=== PATIENT | male | born 1950 | race Asian ===

== ENCOUNTER 2016-11-07 09:48 | Inpatient (IN) | payer MEDICARE ==
[2016-11-07] VITALS (7 sets, daily range): BP systolic 90–126; BP diastolic 51–78; PULSE 80–112; RESP 16–20; TEMP 98.8–101.4; O2SAT 95–97
[~2016-11-07] VITALS: Ht 165.1 cm; Wt 71.7 kg
[~2016-11-07 09:48] MED LIST: ALBU2.5V7 INH; ARTT OP; ASA81 PO; ASCO500T20 PO; BACL20TA PO; DULO30CA51 PO; DULR10 RC; GABA-531 PO; HYDR-1189 PO; MULT9LIQ PO; POTA20TA83 PO; SENN-153 PO
--- NOTE | 2016-11-07 09:48 | NUR ---
Pt report received from MATT Bower. Pt sent from [facility] for coffee ground emesis, abdominal pain, and BLE pain since last night. Pt AAOx4, even and non-labored respirations. Pt has trach stoma that appears to be healing. F/C in place draining ariadna colored urine.
--- NOTE | 2016-11-07 09:48 | NUR ---
Patient to ER bed 6 to gown for evaluation. Side rails up. Report given to eve mendoza.
--- NOTE | 2016-11-07 09:55 | NUR ---
Dr. Maki at bedside to evaluate pt.
[2016-11-07] MEDS ORDERED: NACL 0.9% 1,000 ML IV ONE ×4 (10:15→15:15)
[2016-11-07 10:33] LABS: CALCIUM 9.4 mg/dL (8.4-11.0); CREATININE 0.83 mg/dL (0.55-1.30); POTASSIUM 4.8 mmol/L (3.5-5.1)
[2016-11-07 10:34] LABS: HEMATOCRIT 37.3 % (36-54); HEMOGLOBIN 11.8 g/dL (14.0-18.0); MEAN CORPUSCULAR HEMOGLOBIN 26 pg (27-31); MEAN CORPUSCULAR HGB CONC 32 % (32-36); MEAN CORPUSCULAR VOLUME 81 fL (79.0-98.0); PLATELET COUNT (AUTO) 290 K/uL (130-430); RED BLOOD CELL COUNT(AUTO) 4.63 MIL/uL (4.2-6.2); RED CELL DISTRIBUTION WIDTH 14.8 % (9.0-15.0)
[2016-11-07 10:36] LABS: WHITE BLOOD COUNT (AUTO) 16.4 K/uL (4.8-10.8)
[2016-11-07 10:40] LABS: TOTAL BILIRUBIN 2.1 mg/dL (0.0-1.0)
[2016-11-07 10:41] LABS: ALBUMIN 3.7 g/dL (3.4-4.8); TOTAL PROTEIN, SERUM 8.7 g/dL (6.4-8.3)
[2016-11-07] MEDS ORDERED: MORPHINE SULFATE 10 MG/ML VIAL IVP ONE ×2 (10:45→13:30)
[2016-11-07 10:57] LABS: BILIRUBIN,URINE 1+ (NEGATIVE); BLOOD, URINE 3+ (NEGATIVE); CLARITY/URINE HAZY (CLEAR); COLOR,URINE YELLOW (YELLOW); GLUCOSE,URINE NEGATIVE (NEGATIVE); KETONES,URINE NEGATIVE (NEGATIVE); LEUKOCYTE ESTERASE ,URINE 3+ (NEGATIVE); NITRITE, URINE NEGATIVE (NEGATIVE); PH,URINE 8.5 (5.0-8.0); PROTEIN URINE 1+ (NEGATIVE)
[2016-11-07 10:58] LABS: ATYPICAL LYMPHOCYTES % 0 % (0-0); BAND % (MANUAL) 2 % (0-6); BASOPHILS % (MANUAL) 0 % (0-2); EOSINOPHILS % (MANUAL) 0 % (0-7); LYMPHOCYTES % (MANUAL) 8 % (20-46); MONOCYTES % (MANUAL) 3 % (0-11)
[2016-11-07 11:08] LABS: BACTERIA,URINE FEW /HPF (None Seen)
[2016-11-07 11:09] LABS: MUCUS,URINE None Seen /LPF (None Seen); TRIPLE PHOSPHATE CRYSTAL,UR 0-10 /HPF (None Seen)
[2016-11-07] MEDS ORDERED: cefTRIAXone 1 GM in D5W 50 ML IV ONE (12:00)
[2016-11-07] MEDS ORDERED: metroNIDAZOLE 500 mg/NS 100 ML IV ONE (12:00)
[2016-11-07] MEDS ORDERED: cefTRIAXone 1 GM IVPB PREMIX 50 ML IV ONE (12:07)
--- NOTE | 2016-11-07 12:40 | NUR ---
Pt to CT via stretcher.
[2016-11-07] MEDS ORDERED: ACETAMINOPHEN 500 MG TABLET PO ONE (12:45)
--- NOTE | 2016-11-07 13:03 | NUR ---
Pt returns from CT.
--- NOTE | 2016-11-07 13:15 | NUR ---
Temp 102.7. Dr. Maki notified.
--- NOTE | 2016-11-07 13:18 | NUR ---
Pt given sips of water.
--- NOTE | 2016-11-07 13:25 | NUR ---
Ice packs applied to bilat axilla. Linens removed from pt.
--- NOTE | 2016-11-07 13:27 | NUR ---
Pt c/o 06/18 body pain, ER MD notified
[2016-11-07 13:28] LABS: PROTHROMBIN TIME 10.4 SECS (9.5-12.5)
--- NOTE | 2016-11-07 13:30 | NUR ---
Dr. Vasquez at bedside to assess pt.
[2016-11-07] MEDS ORDERED: PANTOPRAZOLE SODIUM 80 MG in NS 100 ML IV ONE (13:45)
[2016-11-07] MEDS ORDERED: PANTOPRAZOLE SODIUM 40 MG in NS 50 ML IV ONE (13:45)
[2016-11-07] MEDS ORDERED: PIPERACILLIN/TAZO 3.375 GM in NS 50 ML IV ONE (13:45)
--- NOTE | 2016-11-07 13:50 | NUR ---
EJ line to Left neck placed per Dr. Box. Good blood return, flushes easy with NS. Secured with tegaderm and tape. Pt tolerated well.
[2016-11-07] MEDS ORDERED: PIPERACILLIN/TAZOBACTAM 3.375 GM/VIAL (ZOSYN) IV ONE (14:06)
--- NOTE | 2016-11-07 15:00 | NUR ---
Temp 102.5 Dr. Maki notified. Pt to be medicated with Ibuprofen 600 mg PO per verbal order.
[2016-11-07] MEDS ORDERED: PANTOPRAZOLE SODIUM 40 MG/VIAL (PROTONIX) ONE (15:22)
--- NOTE | 2016-11-07 15:45 | NUR ---
Patient will be admitted to care of Dr. Desir. Admitted to Med/Surg unit. Will go to room 135A. Belongings list completed. Summary report printed. Bedside report given to receiving RN.
--- NOTE | 2016-11-07 15:45 | NUR ---
ADMISSION: The patient, YADIEL DUNLAP, 66 y/o, M admitted by AILEEN NIXON DO, was given written information regarding hospital policies, unit procedures and contact persons.
[2016-11-07] MEDS ORDERED: TRAZ-123 GT (15:56)
[2016-11-07] MEDS ORDERED: LEVE500T53 GT (15:56)
[2016-11-07] MEDS ORDERED: FAMO40OR3 GT (15:56)
[2016-11-07] MEDS ORDERED: TAMS0.4C96 GT (15:56)
--- NOTE | 2016-11-07 16:00 | NUR ---
patient came from Er aaox4. temp of 101.6. ice packs on the patient on. hr 82. bp is 130/72. has lt jugular iv access 20 x 2 lumen with normal saline at 100cc/hr infusing on well. and protonix drip at 10cc/hr infusing on well. lungs bilaterally diminished at the bases. on room air 98%. abdomen soft and non distended. has g tube in placed clamped. call lights within reach. safety measures maintained. informed to call for assistance. admission notes noted. verbalized wants a flu shot/vaccine before discharge.
[2016-11-07] MEDS ORDERED: DOCUSATE SODIUM 100 MG CAPSULE PO PRN (16:15)
[2016-11-07] MEDS ORDERED: ONDANSETRON HCL 4 MG/2 ML VIAL IVP PRN (16:15)
[2016-11-07] MEDS ORDERED: ALBUTEROL SULFATE 0.083% 2.5 MG/3 ML VIAL.NEB INH PRN (16:15)
[2016-11-07] MEDS ORDERED: MAGNESIUM SULFATE 50 ML IV PRN (16:15)
[2016-11-07] MEDS ORDERED: levETIRAcetam 500 MG TABLET GT PRN (16:15)
[2016-11-07] MEDS ORDERED: LORazepam 2 MG/ML VIAL IVP PRN (16:15)
[2016-11-07] MEDS ORDERED: NA PHOS,M-B/NA PHOS,DI-BA 118 ML (FLEET ENEMA) RC ONE (16:15)
[2016-11-07] MEDS ORDERED: PANTOPRAZOLE SODIUM 40 MG/VIAL (PROTONIX) IVP ONE (16:45)
[2016-11-07] MEDS: D5NS 1,000 ML IV SCH (16:59)
--- NOTE | 2016-11-07 17:06 | NUR ---
CONSULTATION: REASON FOR CONSULT: UGI BLEED CONSULTING PHYSICIAN: HOLLIS KILLIAN MD ORDERED BY: AILEEN NIXON DO SPOKE WITH [place] BUT DR SUMMERS IS VENDING SUPERVISOR .
[2016-11-07] MEDS: MORPHINE 2 MG/ML INJ. SYRINGE IVP PRN (17:08)
--- NOTE | 2016-11-07 17:09 | NUR ---
CONSULTATION: REASON FOR CONSULT: SEPSIS CONSULTING PHYSICIAN: BLANCA ARIZA MD ORDERED BY: AILEEN NIXON DO SPOKE WITH [place] BUT DR MARK IS SKEIN TIER
--- NOTE | 2016-11-07 17:15 | NUR ---
morphine 2 mg iv given at this time. made comfortable.
[2016-11-07] MEDS: VANCOMYCIN HCL 1,000 MG in NS 250 ML IV SCH (17:16)
--- NOTE | 2016-11-07 17:18 | NUR ---
due medication given at this time. started D5ns at 100cc/hr infusing on well.
--- NOTE | 2016-11-07 17:23 | NUR ---
replaced an ice packs on different places.groin areas. back of nape/neck. bilateral armpits.
--- NOTE | 2016-11-07 17:30 | NUR ---
latest temperature is 99.2
[2016-11-07] MEDS ORDERED: FLU VACC QS 2016-17(36MOS+)/PF 0.5 ML/SYR SYRINGE I.M. PRN ×2 (17:45→18:00)
--- NOTE | 2016-11-07 18:05 | NUR ---
latest temperature is 98.8. afebrile.
--- NOTE | 2016-11-07 18:45 | NUR ---
Dr Levy came and made orders. informed regarding itchiness all over.
[2016-11-07] MEDS ORDERED: DIPHENHYDRAMINE INJ 50 MG/ML VIAL IVP PRN (19:00)
--- NOTE | 2016-11-07 19:22 | NUR ---
sbar report given to incoming nurse Yesy GUTIERREZ
--- NOTE | 2016-11-07 19:35 | NUR ---
Initial Note Patient in bed at this time resting, respirations even and unlabored. No acute distress noted at this time. Patient is stating he is in pain, but I explained to patient that his blood pressure is to low to give morphine at this time, and verbalized understanding. IV site patent with no signs or symptoms of infiltration noted at this time. Call light in hand. Fall and safety precautions in place. Will continue to monitor.
[2016-11-07] MEDS: CEFEPIME 1 GM in D5W 50 ML IV SCH (21:32)
[2016-11-07] MEDS: GABAPENTIN 300 MG CAPSULE PO SCH (21:33)
[2016-11-07] MEDS: ASCORBIC ACID 500 MG TABLET PO SCH (21:33)
[2016-11-07] MEDS: BACLOFEN 10 MG TABLET PO SCH (21:33)
[2016-11-07] MEDS: SENNOSIDES 8.6 MG TABLET PO SCH (21:33)
--- NOTE | 2016-11-07 23:57 | NUR ---
MD Call back. Spoke with Dr. Traore regarding patients blood pressure. Informed him that he is asymptomatic. Dr. Traore is aware that patient blood pressure tends to run in the lower range. Received new order for a bolus of NS. Also to hold any blood pressure medications. Will carry out order.
[2016-11-08] VITALS (7 sets, daily range): BP systolic 85–123; BP diastolic 52–88; PULSE 82–108; RESP 17–20; TEMP 97.8–99.7; O2SAT 96–99
[2016-11-08] MEDS ORDERED: NACL 0.9% 1,000 ML IV ONE
[2016-11-08] MEDS: ACETAMINOPHEN 325 MG TABLET PO PRN (00:23)
--- NOTE | 2016-11-08 01:34 | NUR ---
Bolus Bolus finished per MD order. Patient noted to have increased blood pressure 98/52. Patient continues to be asymptomatic. Call light in hand. Fall and safety precautions in place. Will continue to monitor.
--- NOTE | 2016-11-08 04:17 | NUR ---
RN ROUNDS Patient in bed at this time resting, respirations even and unlabored. No acute distress noted at this time. Patient in no apparent pain or discomfort at this time. Call light in hand. Fall and safety precautions in place. Will continue to monitor.
[2016-11-08] MEDS: D5NS 1,000 ML IV SCH ×3 (04:20→20:38)
[2016-11-08] MEDS: VANCOMYCIN HCL 1,000 MG in NS 250 ML IV SCH ×2 (05:15→17:54)
--- NOTE | 2016-11-08 06:29 | NUR ---
Closing Note Patient in bed at this time resting, patient complained of being itchy. Administered Benadryl as ordered per MD, see eMAR. All due meds given, all needs met. Call light in hand. Fall and safety precautions in place. Will endorse to day shift nurse.
--- NOTE | 2016-11-08 07:20 | NUR ---
Initial notes: pt on bed awake and alert. Remains NPO. Discussed plan of care. Call light within reach. Report received at bedside.
--- NOTE | 2016-11-08 07:22 | NUR ---
Nutrition Update Pt was admitted with Sepsis. Andry Scale: 16 Diet: NPO BMI: 28.3 kg/m2 RD to follow up per nutrition care standards.
[2016-11-08 08:00] LABS: EOSINOPHILS # (AUTO) 0.1 K/uL (0.0-0.4); EOSINOPHILS % (AUTO) 0.4 % (0.0-4.0); HEMATOCRIT 34.2 % (36-54); LYMPHOCYTES # (AUTO) 0.9 K/uL (1.0-5.5); LYMPHOCYTES % (AUTO) 6.6 % (20.5-51.5); MEAN CORPUSCULAR HEMOGLOBIN 26 pg (27-31); MEAN CORPUSCULAR HGB CONC 32 % (32-36); MEAN CORPUSCULAR VOLUME 82 fL (79.0-98.0); MONOCYTES # (AUTO) 0.7 K/uL (0.0-1.0); MONOCYTES % (AUTO) 5.1 % (1.7-9.3); NEUTROPHILS # (AUTO) 12.2 K/uL (1.8-7.7); NEUTROPHILS % (AUTO) 87.9 % (40.0-70.0); PLATELET COUNT (AUTO) 243 K/uL (130-430); RED BLOOD CELL COUNT(AUTO) 4.18 MIL/uL (4.2-6.2); RED CELL DISTRIBUTION WIDTH 15.1 % (9.0-15.0); WHITE BLOOD COUNT (AUTO) 13.9 K/uL (4.8-10.8)
[2016-11-08 08:28] LABS: CALCIUM 8.7 mg/dL (8.4-11.0); CREATININE 1.29 mg/dL (0.55-1.30); POTASSIUM 4.2 mmol/L (3.5-5.1)
[2016-11-08] MEDS: CEFEPIME 1 GM in D5W 50 ML IV SCH ×2 (08:44→20:37)
[2016-11-08] MEDS: PANTOPRAZOLE SODIUM 40 MG/VIAL (PROTONIX) IVP SCH (08:45)
[2016-11-08] MEDS ORDERED: MIDAZOLAM HCL 5 MG/5 ML VIAL ONE ×2 (09:10→09:11)
[2016-11-08] MEDS ORDERED: fentaNYL CITRATE/PF 100 MCG/2 ML AMP ONE (09:11)
[2016-11-08] MEDS: DULoxetine HCL 30 MG CAPSULE.DR (CYMBALTA) PO SCH (12:41)
[2016-11-08] MEDS: TAMSULOSIN HCL 0.4 MG CAP GT SCH (12:41)
[2016-11-08] MEDS: GABAPENTIN 300 MG CAPSULE PO SCH ×3 (12:42→20:37)
[2016-11-08] MEDS: ASCORBIC ACID 500 MG TABLET PO SCH ×2 (12:43→20:37)
[2016-11-08] MEDS: traZODone HCL 50 MG TABLET (DESYREL) GT SCH (12:43)
[2016-11-08] MEDS: BACLOFEN 10 MG TABLET PO SCH ×3 (12:43→20:37)
[2016-11-08] MEDS: HYDROcodone/ACETAMIN 5-325 MG TAB (NORCO/ VICODIN) PO PRN ×2 (12:43→18:10)
--- NOTE | 2016-11-08 18:07 | NUR ---
Critical lab: + for CDIF. page Dr. Manriquez
--- NOTE | 2016-11-08 19:30 | NUR ---
closing notes: pt on bed sleeping. no distress noted. Contact precaution for CDIFF in placed. call light within reach. report given at bedside.
--- NOTE | 2016-11-08 19:35 | NUR ---
Initial Note Patient in bed at this time resting, respirations even and unlabored. No acute distress noted at this time. IV site patent with no signs or symptoms of infiltration noted at this time. Butler draining to gravity, ariadna with sediments. No residual noted on gtube, tolerating feeding well. Call light in hand. Fall and safety precautions in place. Will continue to monitor.
[2016-11-08] MEDS: SENNOSIDES 8.6 MG TABLET PO SCH (20:37)
[2016-11-08] MEDS: metroNIDAZOLE 500 MG TABLET PO SCH (20:37)
--- NOTE | 2016-11-08 22:10 | NUR ---
RN ROUNDS Patient in bed at this time resting, respirations even and unlabored. No acute distress noted at this time. Call light in hand. Fall and safety precautions in place. Will continue to monitor.
--- NOTE | 2016-11-09 00:06 | NUR ---
RN ROUNDS Patient in bed at this time resting, respirations even and unlabored. No acute distress noted at this time. Patient resting with eyes closed. Patient in no apparent pain or discomfort at this time. Patient is NPO at this time for HIDA scan. Call light in hand. Fall and safety precautions in place. Will continue to monitor.
[2016-11-09] MEDS: HYDROcodone/ACETAMIN 5-325 MG TAB (NORCO/ VICODIN) PO PRN ×2 (00:54→21:25)
--- NOTE | 2016-11-09 02:56 | NUR ---
RN ROUNDS Patient in bed at this time resting, respirations even and unlabored. No acute distress noted at this time. Patient in no apparent pain or discomfort at this time, no facial grimacing noted. Call light in place. Fall and safety precautions in place. Will continue to monitor.
[2016-11-09 04:22] VITALS: BP 129/72; PULSE 91; RESP 18; TEMP 98.4; O2SAT 97
[2016-11-09] MEDS: VANCOMYCIN HCL 1,000 MG in NS 250 ML IV SCH (05:16)
--- NOTE | 2016-11-09 06:43 | NUR ---
Closing Note Patient in bed at this time resting, respirations even and unlabored. No acute distress noted at this time. Patient in no apparent pain or discomfort at this time. Call light in hand. Fall and safety precautions in place. Will continue to monitor.
[2016-11-09 07:27] LABS: EOSINOPHILS # (AUTO) 0.3 K/uL (0.0-0.4); EOSINOPHILS % (AUTO) 5.1 % (0.0-4.0); HEMATOCRIT 28.3 % (36-54); HEMOGLOBIN 8.9 g/dL (14.0-18.0); LYMPHOCYTES # (AUTO) 0.7 K/uL (1.0-5.5); LYMPHOCYTES % (AUTO) 11.7 % (20.5-51.5); MEAN CORPUSCULAR HEMOGLOBIN 26 pg (27-31); MEAN CORPUSCULAR HGB CONC 32 % (32-36); MEAN CORPUSCULAR VOLUME 81 fL (79.0-98.0); MONOCYTES # (AUTO) 0.3 K/uL (0.0-1.0); MONOCYTES % (AUTO) 4.7 % (1.7-9.3); NEUTROPHILS # (AUTO) 5.1 K/uL (1.8-7.7); NEUTROPHILS % (AUTO) 78.5 % (40.0-70.0); PLATELET COUNT (AUTO) 204 K/uL (130-430); RED BLOOD CELL COUNT(AUTO) 3.49 MIL/uL (4.2-6.2); RED CELL DISTRIBUTION WIDTH 15.3 % (9.0-15.0)
--- NOTE | 2016-11-09 07:30 | NUR ---
initial notes: pt on the bed resting. stable. plan of care discussed. call light within reach. report received at bedside.
[2016-11-09 07:36] LABS: WHITE BLOOD COUNT (AUTO) 6.4 K/uL (4.8-10.8)
[2016-11-09 07:51] LABS: ALBUMIN 2.5 g/dL (3.4-4.8); BILIRUBIN,DIRECT 0.7 mg/dL (0.0-0.3); CALCIUM 8.2 mg/dL (8.4-11.0); CREATININE 0.7 mg/dL (0.55-1.30); POTASSIUM 3.3 mmol/L (3.5-5.1); TOTAL BILIRUBIN 0.9 mg/dL (0.0-1.0); TOTAL PROTEIN, SERUM 6.6 g/dL (6.4-8.3)
[2016-11-09 08:00] VITALS: BP 141/80; PULSE 85; RESP 18; TEMP 98.1
--- NOTE | 2016-11-09 08:30 | NUR ---
rounds: pt changed under pad due to BM. repositioned for comfort.
[2016-11-09] MEDS: PANTOPRAZOLE SODIUM 40 MG/VIAL (PROTONIX) IVP SCH (08:40)
[2016-11-09] MEDS: MORPHINE 2 MG/ML INJ. SYRINGE IVP PRN ×2 (08:41→15:40)
[2016-11-09] MEDS: CEFEPIME 1 GM in D5W 50 ML IV SCH (09:01)
--- NOTE | 2016-11-09 10:00 | NUR ---
Medication: medication P.O. withheld due to pt NPO for HIDA scan.
[2016-11-09 11:38] VITALS: BP 134/73; PULSE 84; RESP 16; TEMP 98.4; O2SAT 95
--- NOTE | 2016-11-09 12:11 | NUR ---
rounds: pt on bed resting. no distress noted. changed under pad and repositioned.
--- NOTE | 2016-11-09 13:30 | NUR ---
HIDA Scan: pt wheeled to [facility] room for HIDA scan by staff.
[2016-11-09 13:51] VITALS: Ht 165.1 cm; Wt 71.7 kg
--- NOTE | 2016-11-09 15:20 | NUR ---
rounds: pt back in his room. reconnect i.v., gtube, and medication given late due to the npo procedure.
[2016-11-09] MEDS: ASCORBIC ACID 500 MG TABLET PO SCH ×2 (15:40→21:29)
[2016-11-09] MEDS: traZODone HCL 50 MG TABLET (DESYREL) GT SCH (15:41)
[2016-11-09] MEDS: TAMSULOSIN HCL 0.4 MG CAP GT SCH (15:41)
[2016-11-09] MEDS: BACLOFEN 10 MG TABLET PO SCH ×3 (15:41→21:29)
[2016-11-09 15:50] VITALS: BP 139/82; PULSE 87; RESP 17; TEMP 96.9; O2SAT 96
[2016-11-09] MEDS: DULoxetine HCL 30 MG CAPSULE.DR (CYMBALTA) PO SCH (15:51)
[2016-11-09] MEDS: metroNIDAZOLE 500 MG TABLET PO SCH ×2 (15:51→21:28)
[2016-11-09] MEDS: GABAPENTIN 300 MG CAPSULE PO SCH ×2 (15:59→21:23)
--- NOTE | 2016-11-09 16:00 | NUR ---
rounds: pt sleeping. no distress noted.
--- NOTE | 2016-11-09 18:00 | NUR ---
pain meds: pain medication given for lower legs pain.
[2016-11-09] MEDS: ACETAMINOPHEN 325 MG TABLET PO PRN (18:19)
--- NOTE | 2016-11-09 19:35 | NUR ---
initial nursing notes: Patient is awake. Patient is bedbound. Patient has a G-tube feeding. Patient has IV fluid infusing on the left IJ. Patient has a Butler catheter with ariadna colored urine output. Siderails are padded since patient is on seizure precaution.
[2016-11-09] MEDS: D5NS 1,000 ML IV SCH (19:42)
[2016-11-09 19:51] VITALS: BP 145/79; PULSE 84; RESP 17; TEMP 99.6; O2SAT 98
--- NOTE | 2016-11-09 20:12 | NUR ---
rounds: pt on bed resting. no distress noted.
--- NOTE | 2016-11-09 20:13 | NUR ---
closing notes: pt on bed. stable. needs attended. call light within reach. report given to incoming nurse.
[2016-11-09] MEDS: SENNOSIDES 8.6 MG TABLET PO SCH (21:27)
[2016-11-09] MEDS: LACTOBACILLUS RHAMNOSUS GG 1 CAP CAPSULE PO SCH (21:29)
--- NOTE | 2016-11-09 21:35 | NUR ---
nursing rounds: Patient received pain medication for arm pain 12/17. Will reassess patient in about an hour.
--- NOTE | 2016-11-09 22:25 | NUR ---
nursing rounds: Patient is asleep in bed. Patient has no shortness of breath.
[2016-11-10] VITALS (7 sets, daily range): BP systolic 117–147; BP diastolic 70–89; PULSE 76–90; RESP 18–20; TEMP 97.8–99.4; O2SAT 97–100
--- NOTE | 2016-11-10 00:25 | NUR ---
nursing rounds: Patient is sleeping in bed. Kept siderails up X 3 for patient's safety.
--- NOTE | 2016-11-10 02:25 | NUR ---
nursing rounds: Patient had a loose bowel movement in bed. Patient was cleaned and bed covers were changed.
--- NOTE | 2016-11-10 03:55 | NUR ---
nursing rounds: Patient had another loose bowel movement in bed. Patient was cleaned and bed covers were changed.
[2016-11-10] MEDS: D5NS 1,000 ML IV SCH ×3 (04:47→23:55)
--- NOTE | 2016-11-10 05:55 | NUR ---
nursing rounds: Patient calmly resting in bed. Patient has no respiratory distress.
[2016-11-10 06:06] LABS: CALCIUM 8.2 mg/dL (8.4-11.0); CREATININE 0.77 mg/dL (0.55-1.30)
[2016-11-10 06:08] LABS: BASOPHILS % (AUTO) 0.1 % (0.0-2.0); EOSINOPHILS # (AUTO) 0.3 K/uL (0.0-0.4); EOSINOPHILS % (AUTO) 3.6 % (0.0-4.0); HEMATOCRIT 30.9 % (36-54); HEMOGLOBIN 9.6 g/dL (14.0-18.0); LYMPHOCYTES # (AUTO) 0.8 K/uL (1.0-5.5); LYMPHOCYTES % (AUTO) 10.8 % (20.5-51.5); MEAN CORPUSCULAR HEMOGLOBIN 25 pg (27-31); MEAN CORPUSCULAR HGB CONC 31 % (32-36); MEAN CORPUSCULAR VOLUME 81 fL (79.0-98.0); MONOCYTES # (AUTO) 0.4 K/uL (0.0-1.0); MONOCYTES % (AUTO) 5.8 % (1.7-9.3); NEUTROPHILS # (AUTO) 5.9 K/uL (1.8-7.7); NEUTROPHILS % (AUTO) 79.7 % (40.0-70.0); PLATELET COUNT (AUTO) 217 K/uL (130-430); RED CELL DISTRIBUTION WIDTH 14.9 % (9.0-15.0); WHITE BLOOD COUNT (AUTO) 7.4 K/uL (4.8-10.8)
[2016-11-10 07:21] LABS: POTASSIUM 2.9 mmol/L (3.5-5.1)
--- NOTE | 2016-11-10 07:32 | NUR ---
closing nursing notes: Patient calmly resting in bed. Patient is in no acute respiratory distress. Vital signs stable. No episodes of fall and no injuries throughout the cage shift manager. Provided nursing report to incoming morning shift nurse, MATT Ro, at patient's bedside.
--- NOTE | 2016-11-10 07:44 | NUR ---
CALLED ATTENDING MD DR NIXON, , DR SOSA STORAGE GARAGE ATTENDANT, RE: LOW K LEVEL. SPOKE TO RENZO. CALLED DR NIXON AGAIN, RE: DR SOSA DOES NOT HAVE PRIVILEGES. SPOKE TO RENZO HUBER
--- NOTE | 2016-11-10 07:50 | NUR ---
Critical lab Dr. Traore in [place], informed of potassium level of 2.9 with new order given.
--- NOTE | 2016-11-10 08:00 | NUR ---
OPENING NOTE: RECEIVED REPORT FROM NIGHT NURSE. PATIENT IS RESTING COMFORTABLY IN BED. NO S/S OF DISTRESS OR SOB. PATIENT IS A TOTAL CARE BUT HE IS ALERT AND ORIENTED. SANTIAGO DRAINING TO GRAVITY. IV IS PATENT AND INFUSING. CONTACT PRECAUTIONS IN PLACE. VITAL SIGN WNL, ASSESSMENT COMPLETE. CALL LIGHT IN REACH, BED IN LOWEST POSITION, AND WILL CONTINUE TO MONITOR.
[2016-11-10] MEDS ORDERED: POTASSIUM CHLORIDE 40 MEQ, LIDOCAINE JECT 2% PF 100 MG 50 MG in NS 250 ML IV ONE (09:00)
[2016-11-10] MEDS: MORPHINE 2 MG/ML INJ. SYRINGE IVP PRN ×4 (10:00→23:55)
--- NOTE | 2016-11-10 10:00 | NUR ---
NOTE: PATIENT IS RESTING COMFORTABLY IN BED. NO S/S OF DISTRESS OR SOB. PATIENT IS AWAKE AND ALERT. CALL LIGHT IN REACH, BED IN LOWEST POSITION, AND WILL CONTINUE TO MONITOR.
[2016-11-10] MEDS: traZODone HCL 50 MG TABLET (DESYREL) GT SCH (10:12)
[2016-11-10] MEDS: BACLOFEN 10 MG TABLET PO SCH ×3 (10:12→20:28)
[2016-11-10] MEDS: DULoxetine HCL 30 MG CAPSULE.DR (CYMBALTA) PO SCH (10:12)
[2016-11-10] MEDS: PANTOPRAZOLE SODIUM 40 MG/VIAL (PROTONIX) IVP SCH (10:12)
[2016-11-10] MEDS: LACTOBACILLUS RHAMNOSUS GG 1 CAP CAPSULE PO SCH (10:13)
[2016-11-10] MEDS: ASCORBIC ACID 500 MG TABLET PO SCH ×2 (10:13→20:28)
[2016-11-10] MEDS: TAMSULOSIN HCL 0.4 MG CAP GT SCH (10:13)
[2016-11-10] MEDS: GABAPENTIN 300 MG CAPSULE PO SCH ×3 (10:14→20:28)
[2016-11-10] MEDS: metroNIDAZOLE 500 MG TABLET PO SCH ×3 (10:14→20:28)
--- NOTE | 2016-11-10 12:00 | NUR ---
NOTE: PATIENT IS RESTING COMFORTABLY IN BED. NO S/S OF DISTRESS OR SOB. PATIENT IS ALERT AND AWAKE. CALL LIGHT IN REACH, BED IN LOWEST POSITION, AND WILL CONTINUE TO MONITOR.
--- NOTE | 2016-11-10 15:50 | NUR ---
Nutrition Note MD signed nutrition note. RD placed new TF order per MD (Fibersource HN at 60 ml/hr, Prosource BID, Free Water Flush: 100 mlq6hr via G-tube.
--- NOTE | 2016-11-10 17:00 | NUR ---
Nutrition Note RD placed new diet order (mechanical soft) per MD to supplement enteral nutrition. Recommend assisting pt w/ meals to encourage PO intake.
--- NOTE | 2016-11-10 18:16 | NUR ---
CLOSING NOTE: PATIENT IS RESTING COMFORTABLY IN BED. NO S/S OF DISTRESS OR SOB. PATIENT IS ALERT AND ORIENTED. IV IS PATENT AND INFUSING. SANTIAGO DRAINING TO GRAVITY. TUBE-FEEDING IN PLACE. CALL LIGHT IN REACH, BED IN LOWEST POSITION, AND WILL CONTINUE TO MONITOR. Addendum: 11/10/16 at 1817 by Jia Hernández RN WILL ENDORSE CARE TO NIGHT NURSE.
--- NOTE | 2016-11-10 19:49 | NUR ---
OPENING NOTE Pt. and bedside report received from day shift nurse. Pt. is resting quietly in bed with no s/s of acute distress. Plan of care and safety/seizure/isolation measures discussed with pt. Educated pt. on how to use call light for needs. Will continue to monitor.
[2016-11-10] MEDS: HYDROcodone/ACETAMIN 5-325 MG TAB (NORCO/ VICODIN) PO PRN (20:28)
[2016-11-10] MEDS: LACTOBACILLUS RHAMNOSUS GG 1 CAP CAPSULE GT SCH (20:28)
[2016-11-10] MEDS: SENNOSIDES 8.6 MG TABLET PO SCH (20:29)
[2016-11-10] MEDS: ZOLPIDEM TARTRATE 5 MG TABLET PO PRN (20:41)
--- NOTE | 2016-11-10 22:38 | NUR ---
DUE MEDS Late entry due to pt. care. Due meds administered as ordered. Pt. tolerating tubefeeding well with zero residuals noted; infusing as ordered. Pt. requested sleeping pill and states he's in pain "02/16"; norco given as ordered PRN for moderate pain. See EMAR. Educated pt. regarding medication and s/e. Safety and seizure measures in place. No seizure activity noted at this time. Plan of care discussed. Call light placed in hand. Will continue to monitor.
[2016-11-11] VITALS (10 sets, daily range): BP systolic 110–137; BP diastolic 65–79; PULSE 89–107; RESP 17–20; TEMP 97.9–101.8; O2SAT 93–98
--- NOTE | 2016-11-11 00:04 | NUR ---
PAIN Pt. c/o generalized pain. Pt. medicated with Morphine IVP as ordered PRN for moderate pain. See EMAR. Pt. was educated on medication and s/e. Pt. verbalized understanding. IVF infusing as ordered. Safety and seizure measures in place. No s/s of seizure activity at this time. Encouraged pt. to use call light for any needs. Bed alarm on. Will continue to monitor.
--- NOTE | 2016-11-11 00:28 | NUR ---
ROUNDS Pt. is resting quietly in bed with eyes closed; no s/s of acute distress. No seizure activity noted at this time. Safety and seizure measures in place. Bed alarm on. Will continue to monitor.
--- NOTE | 2016-11-11 01:39 | NUR ---
ROUNDS Pt. is resting quietly in bed with no s/s of acute distress. Safety and seizure measures in place with no s/s of seizure activity noted at this time. Call light on lap. Will continue to monitor.
--- NOTE | 2016-11-11 02:30 | NUR ---
ROUNDS Pt. is resting quietly in bed with no s/s of acute distress. Safety measures in place. Call light on lap. Will continue to monitor.
[2016-11-11] MEDS: ACETAMINOPHEN 325 MG TABLET PO PRN ×3 (03:19→23:18)
--- NOTE | 2016-11-11 03:31 | NUR ---
TEMPERATURE/COOLING MEASURES Pt. given tylenol for oral temperature of 101.8F. See eMAR. Cooling measures were implemented. Educated pt. regarding medication and s/e. Pt. verbalized understanding. Skin and incontinence care done for bowel movement. Safety measures in place. Encouraged pt. to use call light for any other needs. Will continue to monitor.
--- NOTE | 2016-11-11 04:01 | NUR ---
TUBEFEEDING Tubefeeding bag changed; tubing changed per protocol. Pt. tolerating well with zero residuals noted, continued infusing as ordered. Oral temperature currently 101.2F (previously 101.8F), cooling measures continued. Will continue to monitor.
[2016-11-11] MEDS: HYDROcodone/ACETAMIN 5-325 MG TAB (NORCO/ VICODIN) PO PRN ×3 (05:22→18:32)
--- NOTE | 2016-11-11 05:37 | NUR ---
PAIN/COOLING MEASURES Pt. c/o pain, educated pt. he has morphine and norco as needed for moderate pain; pt. requested for norco. Educated pt. regarding med and s/e. Pt. verbalized understanding. Cooling measures continued. Safety measures in place. Bed alarm on. No s/s of seizure activity noted at this time. Encouraged pt. to keep ice packs on to help cool body temperature. Pt. cooperative at this time. Call light placed on lap. Will continue to monitor.
--- NOTE | 2016-11-11 05:49 | NUR ---
TEMPERATURE RECHECK/COOLING MEASURES Current oral temperature of 99.7F; cooling measures continued.
[2016-11-11 06:38] LABS: BASOPHILS % (AUTO) 0.1 % (0.0-2.0); EOSINOPHILS # (AUTO) 0.1 K/uL (0.0-0.4); EOSINOPHILS % (AUTO) 0.5 % (0.0-4.0); HEMATOCRIT 29.9 % (36-54); HEMOGLOBIN 9.5 g/dL (14.0-18.0); LYMPHOCYTES # (AUTO) 1.1 K/uL (1.0-5.5); MEAN CORPUSCULAR HEMOGLOBIN 25 pg (27-31); MEAN CORPUSCULAR HGB CONC 32 % (32-36); MEAN CORPUSCULAR VOLUME 79 fL (79.0-98.0); MONOCYTES % (AUTO) 9.1 % (1.7-9.3); NEUTROPHILS # (AUTO) 9.2 K/uL (1.8-7.7); NEUTROPHILS % (AUTO) 80.3 % (40.0-70.0); PLATELET COUNT (AUTO) 226 K/uL (130-430); RED BLOOD CELL COUNT(AUTO) 3.76 MIL/uL (4.2-6.2); RED CELL DISTRIBUTION WIDTH 14.8 % (9.0-15.0); WHITE BLOOD COUNT (AUTO) 11.4 K/uL (4.8-10.8)
--- NOTE | 2016-11-11 06:47 | NUR ---
CLOSING NOTES All needs met throughout shift. Pt. is resting quietly in bed with eyes closed. Respirations are even and unlabored with visible chest rise and fall. Tubefeeding infusing as ordered. IV fluids infusing as ordered. Butler cathteter is intact, secured and draining urine by gravity. Safety, seizure and isolation measures were maintained throughout shift. No s/s of seizure activity noted. Safety measures in place. Bed alarm on. Will endorse care to oncoming day shift nurse.
[2016-11-11 06:50] LABS: CALCIUM 7.9 mg/dL (8.4-11.0); CREATININE 0.71 mg/dL (0.55-1.30)
[2016-11-11 07:15] LABS: POTASSIUM 2.9 mmol/L (3.5-5.1)
--- NOTE | 2016-11-11 08:01 | NUR ---
Initial note Received report at bedside. Pt laying in resting, no s/s of distress noted, alert and oriented, easy to arouse. Respirations are even and unlabored, VSS stable at this time, temperature 99.2, noted IV fluids infusing to left intrajugular access at ordered rate, gtube feeding infusing at appropriate rate, Butler catheter in place and raining clear yellow urine to gravity. seizure and contact precautions in place. patient reoriented to use of call light and it is placed with in reach, bed in low position and locked, will follow up.
--- NOTE | 2016-11-11 08:30 | NUR ---
DR HUSSAIN CARD AWARE OF POTASSIUM LEVEL PER AM PHONE CALL, VIA TELEPHONE ORDER MD STATED TO GIVE PRN POTASSIUM ORDER. UPON ROUNDS STATED HE WILL ALSO ORDER A K-RIDER, GIVEN THAT THE PATIENT IS LOW POTASSIUM FOR 2 DAYS AND CONTINUES TO HAVE LOOSE STOOLS.
[2016-11-11] MEDS: FAMOTIDINE 20 MG TABLET PO SCH (09:18)
[2016-11-11] MEDS: POTASSIUM CHLORIDE 10 MEQ TAB.PRT.SR PO PRN (09:18)
[2016-11-11] MEDS: GABAPENTIN 300 MG CAPSULE PO SCH ×3 (09:18→20:17)
[2016-11-11] MEDS: TAMSULOSIN HCL 0.4 MG CAP GT SCH (09:19)
[2016-11-11] MEDS: traZODone HCL 50 MG TABLET (DESYREL) GT SCH (09:19)
[2016-11-11] MEDS: DULoxetine HCL 30 MG CAPSULE.DR (CYMBALTA) PO SCH (09:19)
[2016-11-11] MEDS: BACLOFEN 10 MG TABLET PO SCH ×3 (09:19→20:17)
[2016-11-11] MEDS: metroNIDAZOLE 500 MG TABLET PO SCH (09:19)
[2016-11-11] MEDS: ASCORBIC ACID 500 MG TABLET PO SCH ×2 (09:19→20:17)
[2016-11-11] MEDS: LACTOBACILLUS RHAMNOSUS GG 1 CAP CAPSULE GT SCH ×2 (09:19→20:17)
[2016-11-11] MEDS ORDERED: POTASSIUM CHLORIDE 40 MEQ, LIDOCAINE JECT 2% PF 100 MG 50 MG in NS 250 ML IV ONE (09:30)
--- NOTE | 2016-11-11 10:30 | NUR ---
Pt cleaned and repositioned bottom intact, no redness or irritation noted. linens changed and bed returned to low position and locked. safety measures in place, will follow up.
[2016-11-11] MEDS: D5NS 1,000 ML IV SCH ×2 (11:31→20:17)
--- NOTE | 2016-11-11 12:15 | NUR ---
PT COMPLAINS OF GENERALIZED PAIN, NOTED PT TO BE DIAPHORETIC, TEMPERATURE ASSESSED, 102.3 AT THIS TIME, ADMINISTERED PRN NORCO, AND COOL MEASURES, ICE PACKS APPLIED AND BLANKETS REMOVED. WILL CONTINUE TO MONITOR DR JESICA ANSARI AT THIS TIME, NOTIFIED OF PATIENTS INCREASED TEMPERATURE AND MEASURES TAKEN. STATED HE WILL FOLLOW UP.
[2016-11-11] MEDS: VANCOMYCIN HCL 125 MG CAPSULE PO SCH ×3 (14:04→20:17)
[2016-11-11] MEDS: metroNIDAZOLE 500 mg/NS 100 ML IV SCH ×2 (14:04→23:18)
--- NOTE | 2016-11-11 14:30 | NUR ---
Temperature 102.3 cooling measures applied, cleansed with cool wash cloth to face and ice packs to arms and shoulders per patient. New antibiotics administered per time frame, will continue to monitor.
--- NOTE | 2016-11-11 15:42 | NUR ---
Temperature reassessed: 97.4 pt is resting, no s/s of distress or complaint of pain at this time, vss, safety measures in place, bed i low position and locked, call light with in reach, will continue to monitor.
--- NOTE | 2016-11-11 16:03 | NUR ---
DC PLANNING Order for dc planning to snf tomorrow. Spoke w pt @ bedside this am, states aware that Dr Traore already discussed w him. States lives @ [facility] & wants to return there. Later in afternoon called [place], , & informed, faxed pt info including isolation for C-Diff to Attn: Dionne(RN Electric Melt Operator) fax [phone].
--- NOTE | 2016-11-11 17:48 | NUR ---
Rounds Pt cleansed and repositioned, tolerated well. No s/s of distress or labored breathing noted, needs attended to, safety measures in place,bed in low position and locked, call light within reach, will follow up.
--- NOTE | 2016-11-11 18:19 | NUR ---
PT HAD LARGE LOOSE STOOL, PT CLEANED, GIVEN BED BATH, LINEN AND GOWN CHANGED. PT REPOSITIONED WITH PILLOW SUPPORT, REAPPLIED ICE PACKS PRECAUTION TO INCREASED TEMPERATURE NOTED EARLIER, NEEDS ATTENDED TO, SAFETY MEASURES IN PLACE, CALL LIGHT WITH IN REACH WILL CONTINUE TO MONITOR.
--- NOTE | 2016-11-11 19:00 | NUR ---
CLOSING NOTE PT RESTING IN BED, EASY TO AROUSE, NO S/S OF DISTRESS OR COMPLAINT OF PAIN AT THIS TIME, VSS. TUBE FEEDING INFUSING AT ORDERED RATE, IV INFUSING TO ORDERED, IV SITE PATENT AND INTACT, NO S/S OF INFILTRATION NOTED. SANTIAGO CATHETER IN PLACE, SECURE AND DRAINING BLANCA URINE TO GRAVITY. SAFETY, CONTACT ISOLATION AND SEIZURE PRECAUTIONS MAINTAINED THROUGHOUT SHIFT, NO SEIZURE ACTIVITY NOTED DURING SHIFT. BED IN LOW POSITION AND LOCKED, CALL LIGHT WITHIN REACH, WILL GIVE REPORT TO FOLLOWING SHIFT.
--- NOTE | 2016-11-11 19:26 | NUR ---
OPENING NOTE Pt. and bedside report received from day shift nurse. Pt. is resting quietly in bed with eyes closed; no s/s of acute distress. Call light on lap. Safety, seizure, and isolation measuers in place. Will continue to monitor.
[2016-11-11] MEDS: ZOLPIDEM TARTRATE 5 MG TABLET PO PRN (20:17)
[2016-11-11] MEDS: SENNOSIDES 8.6 MG TABLET PO SCH (20:18)
--- NOTE | 2016-11-11 20:30 | NUR ---
DUE MEDS/TUBEFEEDING Due meds administered as ordered. Pt. tolerating tubefeeding well with zero residuals noted. Tubefeeding bag and tubing changed. IVF infusing as ordered. Pt. requested sleeping aid. Educated pt. regarding medication and s/e. Safety and seizure measures in place with no s/s of seizure activity noted at this time. Call light placed to left hand. Encouraged pt. to use call light for any needs. Will continue to monitor.
--- NOTE | 2016-11-11 23:18 | NUR ---
TYLENOL/INCONTINENCE CARE/COOLING MEASURES Late entry due to pt care. Pt. given tylenol for temperature of 101.1F; administered as ordered. Pt. tolerated well. Educated pt. regarding medication and s/e. Safety and seizure measures in place. No s/s of seizure activity noted a this time. TWISTER HAND at bedside providing incontinence care. Cooling measures continued. Will continue to monitor.
[2016-11-12] VITALS (7 sets, daily range): BP systolic 113–144; BP diastolic 68–87; PULSE 87–105; RESP 20; TEMP 98.4–101.8; O2SAT 94–99
[2016-11-12] MEDS: HYDROcodone/ACETAMIN 5-325 MG TAB (NORCO/ VICODIN) PO PRN ×2 (00:49→17:48)
--- NOTE | 2016-11-12 01:06 | NUR ---
PAIN Pt. c/o 02/16 generalized pain. Pt. given [place] as ordered. Educated pt. regarding medication. Pt. verbalized understanding. Safety and seizure measures in place with no s/s of seizure activity noted at this time. Bed alarm on. Cooling measures continued. Will continue to monitor.
--- NOTE | 2016-11-12 01:26 | NUR ---
ROUNDS Pt. is resting quietly in bed with no s/s of acute distress. Safety and seizure measures are in place with no s/s of seizure activity noted at this time. Bed alarm on. Call light to left hand side. Will continue to monitor.
--- NOTE | 2016-11-12 02:14 | NUR ---
ROUNDS Pt. is resting quietly in bed with eyes closed. No s/s of acute distress. Safety and seizure measures in place. No s/s of seizure activity note at this time. Bed alarm on. Will continue to monitor.
--- NOTE | 2016-11-12 02:53 | NUR ---
INCONTINENCE CARE EMBROIDERER at bedside who stated pt. had a bowel movement and provided incontinence care. Pt. is awake, resting comfortably with no needs at this time. Safety and seizure measures in place. No s/s of seizure activity noted at this time. Bed alarm on. Will continue to monitor.
--- NOTE | 2016-11-12 04:00 | NUR ---
ROUNDS Late entry due to pt. care. Pt. is resting quietly in bed with no s/s of acute distress. Safety measures in place. Will continue to monitor.
[2016-11-12] MEDS: metroNIDAZOLE 500 mg/NS 100 ML IV SCH ×3 (05:52→21:36)
[2016-11-12] MEDS: D5NS 1,000 ML IV SCH ×3 (05:52→20:20)
--- NOTE | 2016-11-12 06:23 | NUR ---
CLOSING NOTES All needs met throughout shift. Pt. is resting quietly in bed with eyes closed. Respirations are even and unlabored with visible chest rise and fall. No significant changes. Safety, seizure and isolation measures were maintained throughout shift. No s/s of seizure activity noted. Safety measures in place. Bed alarm on. Will endorse care to oncoming day shift nurse.
[2016-11-12 07:22] LABS: CALCIUM 7.8 mg/dL (8.4-11.0); CREATININE 0.69 mg/dL (0.55-1.30); POTASSIUM 3.3 mmol/L (3.5-5.1)
[2016-11-12 07:30] LABS: BASOPHILS % (AUTO) 0.2 % (0.0-2.0); EOSINOPHILS # (AUTO) 0.1 K/uL (0.0-0.4); EOSINOPHILS % (AUTO) 1.1 % (0.0-4.0); HEMATOCRIT 29.4 % (36-54); HEMOGLOBIN 9.4 g/dL (14.0-18.0); LYMPHOCYTES # (AUTO) 1.1 K/uL (1.0-5.5); LYMPHOCYTES % (AUTO) 8.9 % (20.5-51.5); MEAN CORPUSCULAR HEMOGLOBIN 26 pg (27-31); MEAN CORPUSCULAR HGB CONC 32 % (32-36); MEAN CORPUSCULAR VOLUME 81 fL (79.0-98.0); MONOCYTES # (AUTO) 1.4 K/uL (0.0-1.0); MONOCYTES % (AUTO) 10.6 % (1.7-9.3); NEUTROPHILS # (AUTO) 10.2 K/uL (1.8-7.7); NEUTROPHILS % (AUTO) 79.2 % (40.0-70.0); PLATELET COUNT (AUTO) 218 K/uL (130-430); RED BLOOD CELL COUNT(AUTO) 3.63 MIL/uL (4.2-6.2); RED CELL DISTRIBUTION WIDTH 14.7 % (9.0-15.0); WHITE BLOOD COUNT (AUTO) 12.8 K/uL (4.8-10.8)
--- NOTE | 2016-11-12 07:50 | NUR ---
INITIAL NOTES RECEIVED PATIENT ON BED ASLEEP.BREATHING EVEN AND UNLABORED.NO ACUTE DISTRESS.WITH IVF INFUSING WELL;NO SIGNS AND SYMPTOMS OF INFILTRATION.WITH GT FEEDING INFUSING WELL;TOLERATING WELL.SAFETY AND FALL PRECAUTIONS IN PLACE.CALL LIGHT WITHIN REACH.ON ISOLATION PRECAUTION STRICTLY OBSERVED
[2016-11-12] MEDS: BACLOFEN 10 MG TABLET PO SCH ×3 (08:21→20:24)
[2016-11-12] MEDS: ASCORBIC ACID 500 MG TABLET PO SCH ×2 (08:21→20:24)
[2016-11-12] MEDS: LACTOBACILLUS RHAMNOSUS GG 1 CAP CAPSULE GT SCH ×2 (08:21→20:24)
[2016-11-12] MEDS: GABAPENTIN 300 MG CAPSULE PO SCH ×3 (08:22→20:24)
[2016-11-12] MEDS: traZODone HCL 50 MG TABLET (DESYREL) GT SCH (08:22)
[2016-11-12] MEDS: TAMSULOSIN HCL 0.4 MG CAP GT SCH (08:22)
[2016-11-12] MEDS: DULoxetine HCL 30 MG CAPSULE.DR (CYMBALTA) PO SCH (08:22)
[2016-11-12] MEDS: VANCOMYCIN HCL 125 MG CAPSULE PO SCH ×4 (08:22→20:24)
[2016-11-12] MEDS: FAMOTIDINE 20 MG TABLET PO SCH (08:22)
--- NOTE | 2016-11-12 10:19 | NUR ---
NOTES CHECKED PATIENT.NO ACUTE DISTRESS
--- NOTE | 2016-11-12 13:00 | NUR ---
NOTES PATIENT ON BED ASLEEP.NO ACUTE DISTRESS.NEEDS ATTENDED TO
--- NOTE | 2016-11-12 16:21 | NUR ---
NOTES KEPT COMFORTABLE IN BED.VERBALIZING OF WANTING TO GO BACK TO [place] BECAUSE HIS FAMILY CAN VISIT HIM THERE.EXPLAINED TO PATIENT THAT THERE IS NO ORDER FOR DISCHARGE YET
--- NOTE | 2016-11-12 17:10 | NUR ---
Nutrition F/U Admitting Diagnosis sepsis, UTI, upper GI bleed 2/2 esophagitis Past Medical History chronic pain, quadriplegia, CVA Pertinent Medications protonix IV, senokot, vC, vancomycin/NaCl, Mg sulfate, K-Dur, zofran, ativan, colace, morphine, dextrose/NaCl, norco/vicodin, metronidazole, culturelle Current Diet Order Fibersource HN at 60 ml/hr, Prosource BID, Free Water Flush: 100q6 via G-tube (x 2 days) Mechanical soft diet Height (Feet) 5 feet Height (Inches) 5.00 inches Weight (Pounds) 158 pounds Weight (Calculated Kilograms) 71.071779 kilograms Patient Weight 71.668 kg Body Mass Index 26.29 [place]/Adjusted Body Weight IBW: 126 lb/62 kg; adj BW (quadriplegia): 53-56 kg Estimated Needs 7413-6035 kcal/day (30-35 kcal/kg adj BW for sepsis) Grams of Protein per Day 80-112 gm/day (1.5-2 gm/kg adj BW for sepsis) Fluid Intake Goal 1.6-2 L/day (1 ml/kcal/day for maintenance) Pertinent Labs WBC 12.8 H, H/H 9.4 H/29.4 L, Na 135 L, K 3.3 L, BUN 7 L, BG 164 11/09/16: AST 59 H, ALT 148 H, ALB 2.5 L 11/08/16: amylase 106 H 11/07/16: lactic acid 2.6 H Other Subjective Data Pt seen resting in bed at time of visit, TF not running. Per RN, TF was likely held since pt was recently cleaned. Per RN, pt has been tolerating TFs, no residuals today. Reported no planned procedures today. Per EMR, TF intakes (11/12/16): 720 ml, 0 residuals. Andry: 14, no skin issues noted. I/Os (11/12/16): 2520/2400 (+120 ml; 3 BMs recorded today. Noted pt is currently receiving 408 kcal/day via dextrose/NaCl IV fluids. Current TF regimen (with IV fluids) provides: 2256 kcals/day, 108 gm protein/day, and 1564 ml free water/day. Meets 115% of high end of estimated energy needs and 96-135% of estimated protein needs per day. Noted recent elevated BG levels. Recommend new TF regimen: Fibersource HN at 45 ml/hr, Prosource BID, Free Water Flush: 100 ml q6hrs. This would provide (with dextrose via IV fluids): 1824 kcal/day, 88 gm protein/day, 1273 ml free water/day. This would meet: 93% of high end of estimated energy needs and 79% of high end of estimated protein needs. RD left note w/ recommendations for MD to sign. Recommend continuing mechanical soft diet per MD. Pt is not appropriate for nutrition education. Problem, Etiology, Signs/Symptoms Increased nutrient needs related to metabolic demands as evidenced by elevated lactic acid lab values and estimated nutritional needs for sepsis. Expected Outcomes or Goals * Monitor tolerance to EN w/ goal of pt meeting at least 50% of estimated nutritional needs, labs trending WNL, normal GI function, and skin integrity/weight maintenance Dietitian Recommendations * Recommend TF regimen: Fibersource HN at 45 ml/hr, Prosource BID, Free Water Flush: 100 ml q6hrs To provide (with dextrose via IV fluids): 1824 kcal/day, 88 gm protein/day, 1273 ml free water/day This would meet: 93% of high end of estimated energy needs and 79% of high end of estimated protein needs * Continue mechanical soft diet per MD Follow Up High Risk: F/U in 2-3days Addendum: 11/12/16 at [address] [facility] updated TF regimen: Fibersource HN at 45 ml/hr, Prosource BID, Free Water Flush: 100 ml q6hrs
--- NOTE | 2016-11-12 18:24 | NUR ---
CLOSING NOTES PATIENT ON BED AWAKE.BREATHING EVEN AND UNLABORED.NO ACUTE DISTRESS.WITH IVF INFUSING WELL;NO SIGNS AND SYMPTOMS OF INFILTRATION.WITH GT FEEDING;TOLERATING WELL.WITH SANTIAGO CATHETER INTACT AND PATENT DRAINING BLANCA URINE.SAFETY AND FALL PRECAUTIONS IN PLACE.CALL LIGHT WITHIN REACH.WILL ENDORSE TO NEXT SHIFT ACCORDINGLY
--- NOTE | 2016-11-12 20:02 | NUR ---
Opening Note Report received form Yolanda day shift RN. Patient is in stable condition. Currently on contact isolation for C. diff. IV is on the left IJ, 20g running D5NS@100. G-tube feeding is Fibersource running @45ml/hr. Bed is in low position. Seizure pads are in place.
[2016-11-12] MEDS: MORPHINE 2 MG/ML INJ. SYRINGE IVP PRN (20:20)
[2016-11-12] MEDS: SENNOSIDES 8.6 MG TABLET PO SCH (20:24)
--- NOTE | 2016-11-12 22:30 | NUR ---
Rounds Patient is currently resting in bed. Bed is in low position. No signs of distress noted.
[2016-11-13] VITALS: BP 125/69; PULSE 73; RESP 18; TEMP 98.4; O2SAT 94
--- NOTE | 2016-11-13 00:45 | NUR ---
Rounds Patient is resting in bed. No signs of distress noted.
--- NOTE | 2016-11-13 02:30 | NUR ---
Rounds Patient is currently resting in bed. No signs of distress noted.
[2016-11-13] MEDS: HYDROcodone/ACETAMIN 5-325 MG TAB (NORCO/ VICODIN) PO PRN ×3 (03:11→17:39)
[2016-11-13 04:19] VITALS: BP 121/68; PULSE 86; RESP 18; TEMP 98.6; O2SAT 96
--- NOTE | 2016-11-13 04:44 | NUR ---
Rounds patient is currently resting in bed. no signs of distress noted.
[2016-11-13] MEDS: metroNIDAZOLE 500 mg/NS 100 ML IV SCH ×2 (05:16→15:01)
[2016-11-13] MEDS: MORPHINE 2 MG/ML INJ. SYRINGE IVP PRN (06:22)
--- NOTE | 2016-11-13 06:47 | NUR ---
Closing Note Patient is in stable condition. Medicated with Morphine for 6/10 generalized pain. Will reassess. IV is on the [facility] running D5NS@100ml/hr. Butler catheter is patent and draining cloudy yellow urine. Will give report to the oncoming nurse.
[2016-11-13 07:24] LABS: BASOPHILS % (AUTO) 0.4 % (0.0-2.0); EOSINOPHILS # (AUTO) 0.3 K/uL (0.0-0.4); EOSINOPHILS % (AUTO) 3.2 % (0.0-4.0); HEMATOCRIT 29.6 % (36-54); HEMOGLOBIN 9.5 g/dL (14.0-18.0); LYMPHOCYTES # (AUTO) 1.4 K/uL (1.0-5.5); LYMPHOCYTES % (AUTO) 17.5 % (20.5-51.5); MEAN CORPUSCULAR HEMOGLOBIN 25 pg (27-31); MEAN CORPUSCULAR HGB CONC 32 % (32-36); MEAN CORPUSCULAR VOLUME 79 fL (79.0-98.0); MONOCYTES % (AUTO) 12.3 % (1.7-9.3); NEUTROPHILS # (AUTO) 5.1 K/uL (1.8-7.7); NEUTROPHILS % (AUTO) 66.6 % (40.0-70.0); PLATELET COUNT (AUTO) 234 K/uL (130-430); RED BLOOD CELL COUNT(AUTO) 3.73 MIL/uL (4.2-6.2); RED CELL DISTRIBUTION WIDTH 15.2 % (9.0-15.0)
[2016-11-13 07:32] LABS: WHITE BLOOD COUNT (AUTO) 7.8 K/uL (4.8-10.8)
[2016-11-13 07:36] LABS: CREATININE 0.52 mg/dL (0.55-1.30); POTASSIUM 3.3 mmol/L (3.5-5.1)
--- NOTE | 2016-11-13 08:00 | NUR ---
AM ROUNDS: RECEIVED PATIENT IN THE ROOM. AWAKE,ALERT AND ORIENTED X3.ON CONTACT ISOLATION FOR C-DIFF,PRECAUTION RENDERED. GTUBE FEEDS ON GOING AT 45CC/H. WITH LEFT IJ IVF ON GOING.WITH SANTIAGO DRAINING TO YELLOW URINE. CONTRACTED ARMS AND LEGS. CALL LIGHT WITH IN REACH. NEEDS ATTENDED TO.
[2016-11-13] MEDS ORDERED: PANTOPRAZOLE SODIUM 40 MG/VIAL (PROTONIX) IVP SCH (09:00)
[2016-11-13 09:44] VITALS: BP 133/71; PULSE 86; RESP 18; TEMP 97.9; O2SAT 100
[2016-11-13] MEDS: BACLOFEN 10 MG TABLET PO SCH ×2 (09:47→15:20)
[2016-11-13] MEDS: traZODone HCL 50 MG TABLET (DESYREL) GT SCH (09:47)
[2016-11-13] MEDS: GABAPENTIN 300 MG CAPSULE PO SCH ×2 (09:48→15:20)
[2016-11-13] MEDS: POTASSIUM CHLORIDE 10 MEQ TAB.PRT.SR PO PRN (09:48)
[2016-11-13] MEDS: TAMSULOSIN HCL 0.4 MG CAP GT SCH (09:48)
[2016-11-13] MEDS: ASCORBIC ACID 500 MG TABLET PO SCH (09:48)
[2016-11-13] MEDS: DULoxetine HCL 30 MG CAPSULE.DR (CYMBALTA) PO SCH (09:48)
[2016-11-13] MEDS: LACTOBACILLUS RHAMNOSUS GG 1 CAP CAPSULE GT SCH (09:48)
--- NOTE | 2016-11-13 10:00 | NUR ---
MED/GTUBE: NO RESIDUALS PRIOR TO GIVING MEDS.CRUSHED MEDS GIVEN PER GTUBE.FLUSHED WITH WATER AFTER GIVING MEDS.
[2016-11-13] MEDS: VANCOMYCIN HCL 125 MG CAPSULE PO SCH ×3 (10:08→17:39)
--- NOTE | 2016-11-13 11:01 | NUR ---
TRANSFER ORDER: WITH ORDERS DC BACK TO [facility]. CONTINUE IV FLAGYL AND PO VANCO UNTIL 11-19-16.aT [facility] DO PROTONIX 40MG PO VIA GTUBE DAILY FOR 30 DAYS.
--- NOTE | 2016-11-13 11:26 | NUR ---
DC PLANNING Spoke w pt @ bedside to discuss dc per pt's request. Informed pt working on dc back to [facility], states agreeable just wanted to make sure we were working on dc. Asked if anybody he wanted us to call to inform of dc back, states no need to call anybody. Addendum: 11/13/16 at 1524 by Susan HEADLEY faxed referral to [facility]. Called and spoke with Ashutosh in admitting referral was not received. Re-faxed to [facility] [phone]. will follow up. Addendum: 11/13/16 at 1643 by Susan HEADLEY Spoke with Ashutosh at [facility] patient assigned to room 510B RN to report [phone], bed available anytime. RN did not answer phone for time to arrange transport. Spoke with Micaeladee Yepez, granddaughter [phone] who is agreeable with discharge back to SNF today. [facility] contracted ambulance. Called [facility] spoke with Susy garcia BLS transport on will call. Placed transportation packet in nurses station.
--- NOTE | 2016-11-13 12:00 | NUR ---
ROUNDS: RESTING. STABLE.
[2016-11-13 12:42] VITALS: BP 114/62; PULSE 88; RESP 19; TEMP 98.3; O2SAT 98
--- NOTE | 2016-11-13 15:00 | NUR ---
rounds: awake.no complained made. stable.
[2016-11-13] MEDS: D5NS 1,000 ML IV SCH (15:20)
[2016-11-13 15:34] VITALS: BP 137/77; PULSE 86; RESP 19; TEMP 98.6; O2SAT 98
--- NOTE | 2016-11-13 18:45 | NUR ---
REPORT: REPORT GIVEN TO VIRGINIA GUTIERREZ FROM [facility].
[2016-11-13 18:57] VITALS: BP 137/77; PULSE 86; RESP 19; TEMP 98.6; O2SAT 98
--- NOTE | 2016-11-13 19:20 | NUR ---
INITIAL NOTES; -Pt is resting in bed, a/ox3. No family is at bedside. IV site of left IJ-patent, no s/s any infiltration noted. Butler cath w/ gravity drains yellow urine output. G-tube patent,flushed well with warm water and clamped for transferring to [facility] around 1999 waiting to be pick pulling machine tender by [facility] service. No s/s any acute distress noted. Diaper applied. Contact isolation for c-diff. Vital signs stable 97.2, 18, 124/74,86,d7uub=87% r/a. Stoma of neck noted. Abdomen soft & distended,bs present. Lung sounds clear anterior lavelle upper lobes, lavelle posterior lower lobes diminished. Lavelle pedis pulses present,but weak. Generalized weak noted. Healed buttock noted. Fall precaution in place. Call light /win reach. Continue to monitor pt until pick pulling machine tender by [facility] ambulance service.
--- NOTE | 2016-11-13 19:24 | NUR ---
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
--- NOTE | 2016-11-13 20:37 | NUR ---
PT TRANSFERRED Melinda gave a report given to Yobani-nurse at [facility]. Transfer packet with Transfer Orders and Medication Reconciliation form given to EMT (Lakhwinder Muniz and Milan Abdalla) with report. Exitcare provided. [facility] ID band removed, replaced with ID band with pt's name and . Keep IV catheter of left interjular vein,patent, intact and dressing applied, no active bleeding. Butler cath w/ gravity emptied 600ml yellow urine prior transferring to a [place]. Vital signs 97.2, 18, 124/74,86,n0twk=77% r/a. All belongings sent with patient. Patient left floor via gurney escorted by EMT in no distress.
== END 2016-11-13 20:38 | DRG 871 ==
LOC: SED 09:48 → SMU 15:04
PROVIDERS: ADMIT General Practice; ATTEND General Practice
PROC: 0DB58ZX Excision of Esophagus, Via Natural or Artificial Opening Endoscopic, Diagnostic (ICD-10-PCS; 2016-11-08)
PROC: 0DB98ZX Excision of Duodenum, Via Natural or Artificial Opening Endoscopic, Diagnostic (ICD-10-PCS; principal; 2016-11-08 09:30)
DX: A41.9 Sepsis, unspecified organism (principal); G82.50 Quadriplegia, unspecified; K85.90 Acute pancreatitis without necrosis or infection, unspecified; I63.9 Cerebral infarction, unspecified; N39.0 Urinary tract infection, site not specified; E87.1 Hypo-osmolality and hyponatremia; K92.0 Hematemesis; A04.7 Enterocolitis due to Clostridium difficile; M62.838 Other muscle spasm; R74.0 Nonspecific elevation of levels of transaminase and lactic acid dehydrogenase [LDH]; K21.9 Gastro-esophageal reflux disease without esophagitis; K20.9 Esophagitis, unspecified; K22.8 Other specified diseases of esophagus; G40.909 Epilepsy, unspecified, not intractable, without status epilepticus; G89.4 Chronic pain syndrome; J44.9 Chronic obstructive pulmonary disease, unspecified; K21.0 Gastro-esophageal reflux disease with esophagitis; N20.0 Calculus of kidney; Z93.1 Gastrostomy status; Z79.82 Long term (current) use of aspirin; Z79.899 Other long term (current) drug therapy; Z74.01 Bed confinement status
CPT/HCPCS: 36415; 43239; 71010; 76700-TC; 78226; 80048; 80053; 80076; 80202-TC; 81000-TC; 82150-TC; 83605; 83690-TC; 83735-TC; 84484; 85007; 85025; 85027; 85610-TC; 87040-TC; 87081; 87230-TC; 88305; 88312; 88313; 93005; 94640; 96361; 96365; 96367; 96368; 96375; 96376; 99285; A9537; C1751; C9113; J0692; J0696; J1200; J2250; J2270; J2543; J3010; J3370; J3480; J3490; J7030; J7042; J7050; J7060

== ENCOUNTER 2017-07-18 23:48 | Emergency (ER) | payer MEDICARE ==
[~2017-07-18] VITALS: Ht 167.6 cm; Wt 70.3 kg
[~2017-07-18 23:48] MED LIST changes: +LEVE500T53 GT; -POTA20TA83 PO; +TAMS0.4C96 GT; +TRAZ-123 GT
[2017-07-18 23:51] VITALS: BP_SYST 103
--- NOTE | 2017-07-18 23:51 | NUR ---
Patient to ER bed 2 to gown for evaluation. Side rails up. Report given to MATT FLOREZ.
--- NOTE | 2017-07-18 23:55 | NUR ---
Patient brought in from [facility] "pink tinged" gastric content in G-tube. Patient appears stable AAO x 1, appears non-verbal: not answering questions. HR elevated at 92, all other vital signs stable. No redness or inflammation noted to G-tube site. Will continue to monitor.
--- NOTE | 2017-07-19 00:15 | NUR ---
Patient g-tube aspirated and flushed: 2 ml gastric fluid aspirated no blood noted, Flushed with 120 ml sterile water. No adverse reaction noted. G-tube appears patent, fresh dressing in place from nursing facility.
--- NOTE | 2017-07-19 01:00 | NUR ---
Patient resting quietly. No acute distress noted. Vital signs within normal range.
[2017-07-19 01:21] VITALS: BP_SYST 120
--- NOTE | 2017-07-19 01:21 | NUR ---
Patient given written and verbal discharge instructions and verbalizes understanding. Transferred back to nursing facility per ER MD Dr. Moreno Patient in stable condition. ID arm band removed. No Rx given. Patient educated on pain management and to follow up with PMD. Pain Scale 0/10 . Opportunity for questions provided and answered.
--- NOTE | 2017-07-19 02:44 | NUR ---
[facility] called report given to patient care RN regarding patient care while in ED and discharge recommendation per Dr. Moreno.
== END 2017-07-19 01:21 | disposition home or self-care (01) ==
LOC: SED 23:48
DX: K94.23 Gastrostomy malfunction (principal); K21.9 Gastro-esophageal reflux disease without esophagitis; Z86.73 Personal history of transient ischemic attack (TIA), and cerebral infarction without residual deficits; Z79.82 Long term (current) use of aspirin; Z79.899 Other long term (current) drug therapy
CPT/HCPCS: 99284